=== PATIENT | female | born 1970 | race Caucasian/White ===

== ENCOUNTER 2021-06-18 15:15 | Emergency (ER) | payer OTHER, SELFPAY ==
--- NOTE | ~2021-06-18 | CT_ITS ---
EXAMINATION: CT ANGIOGRAM CHEST CLINICAL INFORMATION: Chest pain with question of dissection COMPARISON: Chest radiograph earlier today TECHNIQUE: Multiple axial images were obtained through the chest after the administration of 70 mL of Omnipaque 350 intravenous contrast. Extensive vascular post-processing including two-dimensional and three-dimensional reformatted images were created and reviewed on an independent workstation. This CT examination was performed using dose optimization techniques as appropriate, variously including the following: *Automated exposure control *Adjustment of mA and/or kV according to patient size (this includes techniques or standardized protocols for targeted exams where dose is matched to indication/reason for exam; i.e. extremities or head) *Use of iterative reconstruction technique DLP: 266 mGy-cm FINDINGS: LUNGS: The lungs are clear with no evidence of inflammation or nodules. MEDIASTINUM: The mediastinum is normal. VASCULAR: The thoracic aorta and visualized abdominal aorta appear normal without evidence of dissection. Cardiac motion degrades the very proximal thoracic aorta. Three-vessel branching pattern of the aortic arch is seen with widely patent vessels. Although not carried out for evaluation of the pulmonary arteries or pulmonary veins, they are well seen and unremarkable. No evidence of pulmonary emboli is noted. The celiac and SMA are patent. There are single renal arteries present which are patent PLEURA: There is no pleural effusion. No pleural mass or thickening. AXILLA: No lymphadenopathy. UPPER ABDOMEN: Unremarkable. OSSEOUS STRUCTURES: Unremarkable. CT/CT angio chest aorta IMPRESSION: Unremarkable examination. No evidence of aortic dissection.
--- NOTE | ~2021-06-18 | XR_ITS ---
EXAMINATION: XR CHEST CLINICAL INFORMATION: Chest pain COMPARISON: 11/30/2014 TECHNIQUE: Frontal view of the chest was obtained. FINDINGS: Lungs are well-inflated and clear. Trachea is midline in position. No interstitial disease, consolidation or mass. No pulmonary edema, pleural effusion or pneumothorax. Cardiac silhouette and pulmonary vessels are normal in size. The mediastinum and adamaris have normal contour. The visualized bones, and upper abdomen, are unremarkable. XR/XR chest 1V IMPRESSION: No acute cardiopulmonary abnormality.
[2021-06-18 15:24] VITALS: BP 130/65; PULSE 76; RESP 18; TEMP 37.1; O2SAT 100; BMI 21.5
--- NOTE | 2021-06-18 15:27 | ECG_ITS ---
Test Reason : CHEST PAIN Blood Pressure : / mmHG Vent. Rate : 077 BPM Atrial Rate : 077 BPM P-R Int : 166 ms QRS Dur : 086 ms QT Int : 392 ms P-R-T Axes : 073 039 061 degrees QTc Int : 443 ms Normal sinus rhythm RSR' or QR pattern in V1 suggests right ventricular conduction delay Otherwise normal ECG When compared with ECG of 25-APR-2014 09:35, No significant change was found Referred By: Generic ED Physician Electronically Signed By:SHE CRYSTAL MD
--- NOTE | 2021-06-18 16:06 | ED.CHESTPAIN ---
HPI - Chest Pain General Chief Complaint: Chest Pain Stated Complaint: chest pain Time Seen by Provider: 06/18/21 16:06 Source: patient Mode of arrival: ambulatory Limitations: no limitations History of Present Illness MD complaint: chest pain Onset (ago): hour(s) (245pm ) Timing of current episode: constant Prior episodes: No Onset: during rest Pain location: left chest Pain radiation: right arm Severity: moderate Quality: sharp Relieving factors: nothing Exacerbating factors: inspiration Associated symptoms: dyspnea Treatment prior to arrival: none Related Data Allergies Allergy/AdvReac Type Severity Reaction Status Date / Time tetanus and diphtheria Allergy Severe ANAPHYLAXIS Verified 06/18/21 15:23 toxoids [TETANUS & DIPHTHERIA TOXOIDS] erythromycin base Allergy Unknown UNKNOWN Verified 06/18/21 15:23 [ERYTHROMYCIN BASE] Review of Systems Review of Systems: Constitutional : No Weight loss, No Fever, No Chills ENT/Mouth : No sore throat, No Rhinorrhea Eyes: No Eye Pain, No Swelling Cardiovascular : pos Chest Pain, pos SOB, no Dyspnea on Exertion, No Orthopnea, No Edema, No Palpitations Respiratory : No Cough, No Sputum Gastrointestinal : no Nausea, No Vomiting, No Diarrhea, No abdominal Pain, No Hematochezia, No Melena Genitourinary : No Dysuria, No Urinary Frequency Musculoskeletal : No joint pain, No Myalgias, No Joint Swelling Skin : No Skin Lesions, No rash Neuro : No Weakness, pos Numbness, No Dizziness, No Headache Psych : No Anxiety/Panic, No Depression Heme/Lymph: No Bruising, No Lymphadenopathy Endocrine : No Polyuria, No Polydipsia All other systems reviewed and are negative PMFSH Past Medical History Attestation statement: The following information was validated with the patient. Medical History HTN (hypertension) Social History Social History (Updated 06/18/21 @ 16:32 by Verito Jefferson DO) Patient Tobacco Use Status: Never used Tobacco Use of substances other than those prescribed or required for medical reasons: No Advance Directives: No Advance Directives Information Provided: No Patient : No Physical Exam Vital Signs: Vital Signs: Last Vital Signs Temp 98 F 06/18/21 16:20 Pulse 73 06/18/21 16:20 Resp 18 06/18/21 16:20 BP 115/64 06/18/21 16:20 Pulse Ox 95 06/18/21 16:20 Body Mass Index 21.5 Appearance: Alert. Oriented X3. No acute distress. Anxious Eyes: Pupils equal, round and reactive to light. ENT: Pharynx normal. Neck: Normal inspection. Neck supple. CVS: Normal heart rate and rhythm. Pulses normal. Respiratory: No respiratory distress. Breath sounds normal. Abdomen: Soft and nontender. Skin: Skin warm and dry. Normal skin color. Normal skin turgor. Extremities: No lower extremity edema. No calf ttp Neuro: Oriented X 3. No motor deficit. No sensory deficit. Course Course Course Narrative: repeat trop pending signed out to Dr. Soto MDM - Chest Pain MDM Narrative Medical decision making narrative: 51 yo female with chest pain starting at 245pm with associated dyspnea and parasthesias in the R arm - has + family hx of brother age 50s had SD at this time will obtain EKG, troponin x 2, CTA for dissection given her R arm neuro complaints with it - she is distal NV intact. Lab Data Result diagrams: 06/18/21 16:19 06/18/21 16:19 Labs: Lab Results 06/18/21 06/18/21 06/18/21 Range/Units 16:19 16:19 16:19 WBC 7.4 (4.8-10.8) X10*3/uL RBC 3.98 L (4.20-5.50) X10*6/uL Hgb 12.6 (12.0-16.0) g/dl Hct 36.3 L (37-47) % MCV 91.2 (80-98) fL MCH 31.7 (27.0-33.0) pg MCHC 34.7 (31.0-35.0) g/dl RDW 11.9 (11.0-16.0) % Plt Count 315 (160-400) X10*3/uL MPV 9.3 L (9.4-12.3) fL Immature Gran % (Auto) 0.3 (0.0-0.4) % Neut % (Auto) 51.5 (45-73) % Lymph % (Auto) 37.6 (20-40) % [place] % (Auto) 8.9 (2-11) % Eos % (Auto) 1.2 (0-4) % Baso % (Auto) 0.5 (0-2) % Lymph # (Auto) 2.8 (1.2-4.9) X10*3/uL [place] # (Auto) 0.7 (0.1-1.2) X10*3/uL Eos # (Auto) 0.1 (0.0-0.4) X10*3/uL Baso # (Auto) 0.0 (0.0-0.2) X10*3/uL Abs Immat Gran (auto) 0.02 (0.00-0.03) X10*3/uL Absolute Neuts (auto) 3.8 (2.0-8.3) X10*3/uL Absolute Nucleated RBC 0.000 (0.0-0.012) X10*3/uL Nucleated RBC % (auto) 0.0 (0.0-0.2) /100WBC Sodium 138 (135-145) mmol/L Potassium 3.9 (3.3-5.1) mmol/L Chloride 105 (96-108) mmol/L Carbon Dioxide 22 (22-29) mmol/L Anion Gap 15 (12-20) BUN 17 H (9-16) mg/dL Creatinine 0.75 (0.5-1.4) mg/dL Estim Creat Clear Calc 70.1 Estimated GFR > 60 Random Glucose 95 (60-115) mg/dL Calcium 9.8 (8.4-10.2) mg/dL Troponin I High Sens < 3.5 (<3.5-17.0) ng/L ECG Data ECG #1: Attestation: I personally reviewed and interpreted this ECG as follows: ECG interpretation date: 06/18/21 ECG interpretation time: 16:07 Interpretation: Rate: 77 Rhythm: NSR [place]: normal Normal P waves. Normal REBA. Normal QRS complex. ST T wave : normal no VOLODYMYR qTC: normal prior studies: no acute ischemia The study has been interpreted contemporaneously by me. . Discharge Plan Discharge Clinical Impression: Chest pain
[2021-06-18 16:20] VITALS: BP 115/64; PULSE 73; RESP 18; TEMP 36.6; O2SAT 95
[2021-06-18] MEDS: 0.9 % Sodium Chloride 1,000 ML 999 ML IVCONT (16:27)
[2021-06-18 16:28] LABS: MANUAL DIFF FLAG NO
[2021-06-18 16:30] LABS: Basophils Percent Auto 0.5 % (0-2); Eosinophils Absolute Auto 0.1 X10*3/uL (0.0-0.4); Eosinophils Percent Auto 1.2 % (0-4); Hematocrit 36.3 % (37-47); Hemoglobin 12.6 g/dl (12.0-16.0); Imm Gran Abs Auto 0.02 X10*3/uL (0.00-0.03); Imm Gran Pct Auto 0.3 % (0.0-0.4); Lymphocytes Absolute Auto 2.8 X10*3/uL (1.2-4.9); Lymphocytes Percent Auto 37.6 % (20-40); Mean Corpuscular HGB Conc 34.7 g/dl (31.0-35.0); Mean Corpuscular Hemoglobin 31.7 pg (27.0-33.0); Mean Corpuscular Volume 91.2 fL (80-98); Mean Platelet Volume 9.3 fL (9.4-12.3); Monocytes Absolute Auto 0.7 X10*3/uL (0.1-1.2); Monocytes Percent Auto 8.9 % (2-11); Neutrophils Absolute Auto 3.8 X10*3/uL (2.0-8.3); Neutrophils Percent Auto 51.5 % (45-73); Platelet Count 315 X10*3/uL (160-400); Red Blood Count 3.98 X10*6/uL (4.20-5.50); Red Cell Distribution Width 11.9 % (11.0-16.0); White Blood Count 7.4 X10*3/uL (4.8-10.8)
[2021-06-18 16:45] LABS: Anion Gap 15 (12-20); Blood Urea Nitrogen 17 mg/dL (9-16); Calcium 9.8 mg/dL (8.4-10.2); Carbon Dioxide 22 mmol/L (22-29); Chloride 105 mmol/L (96-108); Creatinine Clr Calc Pharmacy 70.1; Estimated Glomerular Filt Rate > 60; Glucose Random 95 mg/dL (60-115); Potassium 3.9 mmol/L (3.3-5.1); Sodium 138 mmol/L (135-145)
[2021-06-18 16:52] LABS: Troponin-I High Sensitivity < 3.5 ng/L (<3.5-17.0)
[2021-06-18] MEDS: iohexoL 350 MG/ML 100 ML INFUS..BTL IV (18:18)
[2021-06-18 19:34] LABS: Troponin-I High Sensitivity < 3.5 ng/L (<3.5-17.0)
[2021-06-18 19:59] VITALS: BP 127/61; PULSE 65; RESP 14; TEMP 37; O2SAT 99
== END 2021-06-18 20:16 | disposition home or self-care (01) ==
PROVIDERS: Emergency Provider Emergency Medicine; PCP Internal Medicine
DX: R07.9 Chest pain, unspecified (principal); I10 Essential (primary) hypertension
CPT/HCPCS: 36415; 71045; 71275; 80048; 84484; 85025; 93005; 96360; 99283; 99284; Q9967

== ENCOUNTER 2021-07-04 06:22 | Outpatient (REF) | payer OTHER, SELFPAY ==
[2021-07-04 08:22] LABS: MANUAL DIFF FLAG NO
[2021-07-04 08:27] LABS: Basophils Percent Auto 0.6 % (0-2); Eosinophils Absolute Auto 0.1 X10*3/uL (0.0-0.4); Eosinophils Percent Auto 1.2 % (0-4); Hematocrit 35.8 % (37.0-47.0); Hemoglobin 12.2 g/dl (12.0-16.0); Imm Gran Abs Auto 0.01 X10*3/uL (0.00-0.03); Imm Gran Pct Auto 0.2 % (0.0-0.4); Lymphocytes Absolute Auto 1.8 X10*3/uL (1.2-4.9); Lymphocytes Percent Auto 37.4 % (20-40); Mean Corpuscular HGB Conc 34.1 g/dl (31.0-35.0); Mean Platelet Volume 9.3 fL (9.4-12.3); Monocytes Absolute Auto 0.3 X10*3/uL (0.1-1.2); Neutrophils Absolute Auto 2.7 x10*3/uL (2.0-8.3); Neutrophils Percent Auto 54.6 % (45-73); Platelet Count 318 X10*3/uL (160-400); Red Blood Count 3.81 X10*6/uL (4.20-5.50); Red Cell Distribution Width 12.4 % (11.0-16.0); White Blood Count 4.9 X10*3/uL (4.8-10.8)
[2021-07-04 09:10] LABS: Vitamin D 25-OH Total 33.2 ng/mL (>30)
[2021-07-04 09:25] LABS: Folate 17.4 ng/mL (> or = 4.0); Vitamin B12 576 pg/mL (200-900)
[2021-07-04 09:30] LABS: Anion Gap 10 (12-20); Blood Urea Nitrogen 17 mg/dL (9-16); Calcium 9.6 mg/dL (8.4-10.2); Carbon Dioxide 30 mmol/L (22-29); Chloride 105 mmol/L (96-108); Estimated Glomerular Filt Rate > 60; Glucose Random 86 mg/dL (60-115); Sodium 141 mmol/L (135-145)
[2021-07-04 09:38] LABS: Cortisol Random 6.7 ug/dL
[2021-07-04 18:48] LABS: Cortisol Random 7.9 ug/dL
[2021-07-07 17:52] LABS: Adrenocorticotropic Hormone 11 pg/mL (6-50)
[2021-07-08 14:55] LABS: Iodine, Serum/Plasma 45 mcg/L (52-109)
[2021-07-08 18:11] LABS: Follicle Stimulating Hormone 116.1 mIU/mL
[2021-07-08 22:16] LABS: DHEA Sulfate 92 mcg/dL (8-188)
[2021-07-08 22:35] LABS: Methylmalonic Acid 142 nmol/L (87-318)
[2021-07-09 11:27] LABS: Nicotinamide 23 ng/mL; Vit B3 - Nicotinic Acid <20 ng/mL
[2021-07-09 16:37] LABS: Vitamin B6 11.6 ng/mL (2.1-21.7)
[2021-07-09 16:45] LABS: Testosterone, Free 1.7 pg/mL (0.1-6.4); Testosterone, Total 19 ng/dL (2-45)
[2021-07-09 17:15] LABS: Vitamin B5 (Pantothenic Acid) <40 ng/mL (<275)
[2021-07-09 22:42] LABS: Progesterone <0.1 ng/mL
[2021-07-10 02:17] LABS: Pregnenolone, LC/MS 46 ng/dL (22-237)
[2021-07-10 11:21] LABS: Vitamin B1 12 nmol/L (8-30)
[2021-07-12 02:42] LABS: Estradiol Free 0.07 pg/mL; Estradiol, Ultrasensitive 3 pg/mL
[2021-07-14 15:31] LABS: IGF-1 (Somatomedin C) 99 ng/mL (50-317); IGF-1 Z Score (Female) -0.7 SD (-2.0 - +2.0)
== END 2021-07-04 06:23 | disposition home or self-care (01) ==
LOC: HO.LAB 06:22
PROVIDERS: PCP Internal Medicine; Visit Provider Nurse Practitioner Family
DX: R53.83 Other fatigue (principal); N95.8 Other specified menopausal and perimenopausal disorders
CPT/HCPCS: 36415; 80048; 82024; 82306; 82533; 82607; 82627; 82670; 82681; 82746; 83001; 83735; 83789; 83921; 84143; 84144; 84207; 84305; 84402; 84403; 84425; 84591; 85025

== ENCOUNTER 2021-07-04 08:32 | Emergency (ER) | payer OTHER, SELFPAY ==
--- NOTE | 2021-07-04 07:20 | ECG_ITS ---
Test Reason : SYNCOPE Blood Pressure : / mmHG Vent. Rate : 076 BPM Atrial Rate : 076 BPM P-R Int : 184 ms QRS Dur : 082 ms QT Int : 408 ms P-R-T Axes : 082 065 071 degrees QTc Int : 459 ms Normal sinus rhythm RSR' or QR pattern in V1 suggests right ventricular conduction delay Otherwise normal ECG When compared with ECG of 18-JUN-2021 15:21, No significant change was found Referred By: Verito Jefferson Electronically Signed By:SHE CRYSTAL MD
[2021-07-04 08:39] VITALS: BP 97/59; PULSE 80; RESP 20; TEMP 36.4; O2SAT 100; BMI 22.3
--- NOTE | 2021-07-04 08:43 | ED.SYNCOPE ---
HPI - Syncope General Chief Complaint: Syncope <Verito Jefferson DO - Last Filed: 07/04/21 11:32> Stated Complaint: ? <Verito Jefferson DO - Last Filed: 07/04/21 11:32> Time Seen by Provider: 07/04/21 08:43 <Verito Jefferson DO - Last Filed: 07/04/21 11:32> Source: patient <Verito Jefferson DO - Last Filed: 07/04/21 11:32> Mode of arrival: other (stretcher from lab) <Verito Jefferson DO - Last Filed: 07/04/21 11:32> Limitations: no limitations <Verito Jefferson DO - Last Filed: 07/04/21 11:32> History of Present Illness MD complaint: loss of consciousness and felt faint <Verito Jefferson DO - Last Filed: 07/04/21 11:32> Onset (ago): minute(s) <Verito Jefferson DO - Last Filed: 07/04/21 11:32> -: second(s) <Verito Jefferson DO - Last Filed: 07/04/21 11:32> Prodromal symptoms: lightheaded, diaphoresis and nausea/vomiting <Verito Jefferson DO - Last Filed: 07/04/21 11:32> Witnessed: Yes - by Bystander <Verito Jefferson DO - Last Filed: 07/04/21 11:32> Context: other (was having blood drawn for menopause on 4th vial started to have symptoms - fasting blood work) <Verito Jefferson DO - Last Filed: 07/04/21 11:32> Injuries sustained associated with event: none <Verito Jefferson DO - Last Filed: 07/04/21 11:32> Current symptoms: other (carpopedal spasm though better, initial BP lows) <Verito Jefferson DO - Last Filed: 07/04/21 11:32> History: previous syncopal episode (during one prior medical workup) <Verito Jefferson DO - Last Filed: 07/04/21 11:32> Treatments prior to arrival: none <Verito Jefferson DO - Last Filed: 07/04/21 11:32> Related Data Home Medications: Home Medications Medication Instructions Recorded Confirmed sertraline 100 mg tablet 1 tab PO DAILY 07/04/21 trazodone 50 mg tablet tab PO 07/04/21 <Verito Jefferson DO - Last Filed: 07/04/21 11:32> Allergies/Adverse Reactions: Allergies Allergy/AdvReac Type Severity Reaction Status Date / Time tetanus and diphtheria Allergy Severe ANAPHYLAXIS Verified 06/18/21 15:23 toxoids [TETANUS & DIPHTHERIA TOXOIDS] erythromycin base Allergy Unknown UNKNOWN Verified 06/18/21 15:23 [ERYTHROMYCIN BASE] <Verito Jefferson DO - Last Filed: 07/04/21 11:32> Review of Systems Review of Systems: Constitutional : No Weight loss, No Fever, No Chills, No Fatigue, No Malaise ENT/Mouth : No sore throat, No Rhinorrhea Eyes: No Eye Pain, No Swelling, No Redness Cardiovascular : No Chest Pain, No SOB, No Dyspnea on Exertion, No Orthopnea, No Edema, No Palpitations Respiratory : No Cough, No Sputum, No Wheezing Gastrointestinal : pos Nausea, No Vomiting, No Diarrhea, No Constipation, No abdominal Pain, No Hematochezia, No Melena Genitourinary : No Dysuria, No Urinary Frequency, No Hematuria, Musculoskeletal : No joint pain, No Myalgias, No Joint Swelling Skin : No Skin Lesions, No rash Neuro : pos diffuse Weakness, No Numbness, No Dizziness, No Headache, pos fainting Psych : No Anxiety/Panic, No Depression Heme/Lymph: No Bruising, No Bleeding,No Lymphadenopathy Endocrine : No Polyuria, No Polydipsia All other systems reviewed and are negative <Verito Jefferson DO - Last Filed: 07/04/21 11:32> [facility] Past Medical History Attestation statement: The following information was validated with the patient. <Verito Jefferson DO - Last Filed: 07/04/21 11:32> Medical History: Medical History Hypotension <Verito Jefferson DO - Last Filed: 07/04/21 11:32> Social History Social History: Social History Alcohol intake: never Patient Tobacco Use Status: Never used Tobacco Use of substances other than those prescribed or required for medical reasons: No Advance Directives: Yes Advance Directives Information Provided: Yes Advance Directives on File: No <Verito Jefferson DO - Last Filed: 07/04/21 11:32> Physical Exam Vital Signs: Vital Signs: Last Vital Signs Temp 97.6 F 07/04/21 08:39 Pulse 80 07/04/21 08:39 Resp 20 07/04/21 08:39 BP 97/59 L 07/04/21 08:39 Pulse Ox 98 07/04/21 09:38 Body Mass Index 22.3 <Verito Jefferson DO - Last Filed: 07/04/21 11:32> Vital Signs: Last Vital Signs Temp 97.6 F 07/04/21 08:39 Pulse 80 07/04/21 08:39 Resp 20 07/04/21 08:39 BP 97/59 L 07/04/21 08:39 Pulse Ox 98 07/04/21 09:38 Body Mass Index 22.3 <Daisy Child PA - Last Filed: 07/04/21 09:53> Appearance: Alert. Oriented X3. No acute distress. Eyes: Pupils equal, round and reactive to light. ENT: Pharynx normal. Neck: Normal inspection. Neck supple. CVS: Normal heart rate and rhythm. Pulses normal. Respiratory: No respiratory distress. Breath sounds normal. Abdomen: Soft and nontender. Skin: Skin warm and dry. Normal skin color. Normal skin turgor. Extremities: No lower extremity edema. No calf ttp Neuro: Oriented X 3. No motor deficit. No sensory deficit. carpopedal spasms resolved <Verito Jefferson DO - Last Filed: 07/04/21 11:32> MDM - Syncope MDM Narrative Medical decision making narrative: 51 yo female with hx of low blood pressure being worked up for menopause - had fasting blood work today hx of syncope with medical procedures in the past. At this time will add on lytes given her spasms though I suspect vasovagal syncope. Basic labs and 2L of IVF as well as EKG. Will order breakfast and reasess. No injuries sustained. <Verito Jefferson DO - Last Filed: 07/04/21 11:32> Lab Data Labs: Lab Results 07/04/21 Range/Units 08:34 POC Glucose 121 H (60-115) mg/dL <Verito Jefferson DO - Last Filed: 07/04/21 11:32> Lab Results 07/04/21 Range/Units 08:34 POC Glucose 121 H (60-115) mg/dL <LUIS Martines - Last Filed: 07/04/21 09:53> ECG Data Attestation: I personally reviewed and interpreted this ECG as follows: <Verito Jefferson DO - Last Filed: 07/04/21 11:32> ECG interpretation date: 07/04/21 <Verito Jefferson DO - Last Filed: 07/04/21 11:32> ECG interpretation time: 08:43 <Verito Jefferson DO - Last Filed: 07/04/21 11:32> Interpretation: Rate: 76 Rhythm: NSR [place]: normal Normal P waves. Normal REBA. Normal QRS complex. ST T wave : normal , no VOLODYMYR qTC: normal prior studies: no acute ischemia The study has been interpreted contemporaneously by me. . <Verito Jefferson DO - Last Filed: 07/04/21 11:32> Discharge Plan Discharge Clinical Impression: Vasovagal syncope <Verito Jefferson DO - Last Filed: 07/04/21 11:32> Patient Disposition: Home, Self-Care <Verito Jefferson DO - Last Filed: 07/04/21 11:32> Instructions: Syncope (ED) <Verito Jefferson DO - Last Filed: 07/04/21 11:32> Additional Instructions: return to ED for any worsening symptoms or concerns <Verito Jefferson DO - Last Filed: 07/04/21 11:32> Prescriptions: No Action trazodone 50 mg tablet PO RF: 0 sertraline 100 mg tablet 1 tab PO DAILY RF: 0 <Verito Jefferson DO - Last Filed: 07/04/21 11:32> Stand Alone Forms: Work/School Release <Verito Jefferson DO - Last Filed: 07/04/21 11:32> Interventions: ED Discharge Assessment Last Done: 07/04/21 10:25 <Verito Jefferson DO - Last Filed: 07/04/21 11:32> Discharge Date/Time: 07/04/21 10:25 <Verito Jefferson DO - Last Filed: 07/04/21 11:32>
[2021-07-04 08:45] LABS: Glucose, Whole Blood 121 mg/dL (60-115)
--- NOTE | 2021-07-04 08:48 | PC.NURSE ---
RN aware of poc 121
[2021-07-04] MEDS: 0.9 % Sodium Chloride 1,000 ML 999 ML IVCONT ×2 (09:01→09:57)
[2021-07-04 09:38] VITALS: O2SAT 98
== END 2021-07-04 10:25 | disposition home or self-care (01) ==
PROVIDERS: Emergency Provider Emergency Medicine; PCP Internal Medicine
DX: R55 Syncope and collapse (principal)
CPT/HCPCS: 36415; 82947; 93005; 96360; 99284; 99285

== ENCOUNTER 2022-06-26 10:35 | Emergency (ER) | payer OTHER, SELFPAY ==
[2022-06-26 10:56] VITALS: BP 121/68; PULSE 70; RESP 18; TEMP 36.6; O2SAT 99; BMI 21.2
--- NOTE | 2022-06-26 11:21 | ED.EXTPRO ---
HPI - Extremity Problem General Chief complaint: Extremity Injury, Upper Stated complaint: pain in L elbow Time Seen by Provider: 06/26/22 11:13 Source: patient Mode of arrival: ambulatory Limitations: no limitations History of Present Illness HPI Narrative: 52-year-old female [id number] here with left elbow pain intermittent over the last month with history of tendinitis in the same elbow. Patient here seeking cortisone injection as this has been helpful for her in the past. She has been draining recheck her primary care doctor to try to get an appointment but has been unable to. She denies any new injury or trauma. No associated numbness, tingling weakness of the extremity. Related Data Home Medications Medication Instructions Recorded Confirmed sertraline 100 mg tablet 1 tab PO DAILY 07/04/21 trazodone 50 mg tablet tab PO 07/04/21 Allergies Allergy/AdvReac Type Severity Reaction Status Date / Time tetanus and diphtheria Allergy Severe ANAPHYLAXIS Verified 06/18/21 15:23 toxoids [TETANUS & DIPHTHERIA TOXOIDS] erythromycin base Allergy Unknown UNKNOWN Verified 06/18/21 15:23 [ERYTHROMYCIN BASE] Review of Systems Review of Systems: Yes all other systems are reviewed and are negative Constitutional: Constitutional: Reports no additional constitutional complaints, Denies fever(s) and Denies weakness ENT: Denies system reviewed and no additional complaints, except as documented Cardiovascular: Cardiovascular: Reports no additional cardiovascular complaints, Denies chest pain and Denies dyspnea Respiratory: Respiratory: Reports no additional respiratory complaints and Denies dyspnea Gastrointestinal: Gastrointestinal: Reports no additional gastrointestinal complaints, Denies nausea and Denies vomiting Genitourinary: Genitourinary: Denies no additional female genitourinary complaints Musculoskeletal: Musculoskeletal: Reports no additional musculoskeletal complaints, Reports arthralgias, Denies joint swelling, Denies numbness and Denies tingling Integumentary/Breasts: Skin/Breast: Reports system reviewed and no additional complaints, except as docu and Denies rash Neurologic: Reports system reviewed and no additional complaints, except as documented, Denies Abnormal speech present, Denies numbness, Denies tingling and Denies weakness PMF Past Medical History Attestation statement: The following information was validated with the patient. Source: old records reviewed and nursing notes reviewed Medical History Hypotension Social History Social History Alcohol intake: never Patient Tobacco Use Status: Never used Tobacco Advance Directives: No Advance Directives Information Provided: No Physical Exam Vital Signs: Vital Signs: Last Vital Signs Temp 98 F 06/26/22 10:56 Pulse 70 06/26/22 10:56 Resp 18 06/26/22 10:56 BP 121/68 06/26/22 10:56 Pulse Ox 99 06/26/22 10:56 O2 Del Method 06/26/22 10:56 BMI result Body Mass Index 21.2 Const: General: cooperative, healthy appearing, comfortable and no acute distress Orientation/consciousness: patient oriented x3 Limitations: no limitations HEENT: Head: Yes normal to inspection Ears: hearing grossly normal bilaterally Eyes: General: appearance normal, both eyes and all related structures Pupils: Equal, round and reactive pupils present Neck: Neck: Yes normal visual inspection Chest: Chest palpation & inspection: normal inspection of the chest Resp: Effort & Inspection: normal respiratory effort Cardio: Peripheral pulses: Peripheral pulses 2+ throughout Skin: General skin exam: no rashes or lesions noted Neuro: General: patient oriented x3 and moves all extremities Cranial nerves: Yes Equal, round and reactive pupils present Cognition (Neuro): normal cognition Speech: No Abnormal speech present Gait exam (Neuro): Normal gait present Extrem: Other: There is tenderness the left lateral elbow which is worsened with extension and flexion of the elbow. There is no weakness. Neurovascularly intact distally. Normal pulses. No redness or warmth General: Yes normal to inspection MDM - Extremity (Nontraumatic) MDM Narrative Medical decision making narrative: 52-year-old female here with left elbow pain or intermittent over the last month with a history of tendinitis in the same elbow. Patient here seeking cortisone injection. Unfortunately explain to her that we are unable to do this in the emergency room. She is taking ibuprofen feels that is not helping. We discussed a brief course of prednisone which she is not interested in doing this. We also discussed some bracing but she does not like this is helpful. Recommend continuing Motrin, heat or ice. She can follow up with primary care and orthopedics as needed. Reviewed worrisome signs and symptoms of when to return to the emergency room. Comfortable plan for discharge home. Medical Records Attestation: I reviewed the patient's medical records. Discharge Plan Discharge Clinical Impression: Left elbow tendinitis Patient Disposition: Home, Self-Care Instructions: Tendinitis (ED) Additional Instructions: Continue ibuprofen Heat or ice You can try to get in with your primary care doctor or recheck to Orthopedics for the cortisone injection Prescriptions: No Action trazodone 50 mg tablet PO sertraline 100 mg tablet 1 tab PO DAILY Referrals: [facility] [place] Orthopedic Surgeons [Provider Group] - 3 days Interventions: ED Discharge Assessment Last Done: 06/26/22 11:32 Discharge Date/Time: 06/26/22 11:33
== END 2022-06-26 11:33 | disposition home or self-care (01) ==
PROVIDERS: Emergency Provider Emergency Medicine; PCP Internal Medicine
DX: M25.522 Pain in left elbow (principal)
CPT/HCPCS: 99282; 99283

== ENCOUNTER 2022-09-01 07:46 | Emergency (ER) | payer OTHER, SELFPAY ==
--- NOTE | ~2022-09-01 | CT_ITS ---
EXAMINATION: CT HEAD WITHOUT CONTRAST CLINICAL INFORMATION: Dizziness and left upper extreme numbness COMPARISON: None TECHNIQUE: Contiguous axial imaging was performed from the skull base to vertex without intravenous administration of contrast. This CT examination was performed using dose optimization techniques as appropriate, variously including the following: *Automated exposure control *Adjustment of mA and/or kV according to patient size (this includes techniques or standardized protocols for targeted exams where dose is matched to indication/reason for exam; i.e. extremities or head) *Use of iterative reconstruction technique DLP: 658 mGy-cm FINDINGS: There is no acute intra-axial, extra-axial bleed, masses or midline shift. There is no acute infarction in evolution. There is no edema. There is a subtle lucency seen in the right white matter frontal lobe axial image 20/3 and coronal image 102/7 likely artifact. The lateral ventricles are symmetrical in size and configuration without enlargement. The joshua to white matter differentiation is maintained normal. Bone windows reveal no calvarial abnormality. Bilateral paranasal sinuses and mastoid air cells are well-aerated. CT/CT head/brain wo IV con IMPRESSION: No acute intracranial process seen. .
[2022-09-01 07:57] VITALS: BP 98/62; PULSE 75; RESP 18; TEMP 36.6; O2SAT 99; BMI 22.6
--- NOTE | 2022-09-01 08:05 | ECG_ITS ---
Test Reason : dizziness Blood Pressure : / mmHG Vent. Rate : 062 BPM Atrial Rate : 062 BPM P-R Int : 176 ms QRS Dur : 080 ms QT Int : 386 ms P-R-T Axes : 076 047 064 degrees QTc Int : 391 ms Normal sinus rhythm Normal ECG When compared with ECG of 04-JUL-2021 08:38, QT has shortened Referred By: Porsche Almodovar Electronically Signed By:ADITI PIERRE
--- NOTE | 2022-09-01 08:27 | ED_ITS ---
HPI - Dizziness General Chief Complaint: Dizziness Stated Complaint: Dizzy/Near syncope this am Time Seen by Provider: 09/01/22 08:05 Source: patient and family Mode of arrival: ambulatory Limitations: no limitations History of Present Illness HPI Narrative: 52-year-old female with a past medical history of vasovagal syncope in June 2021 while having her blood drawn, nonspecific chest pain in 2020, in frequent ear infections per patient presents to the emergency department, with her spouse, for complaints of dizziness and feeling faint that began at 6:30 a.m. She states she felt nauseous and had the sensation she was about to pass out and sat on the floor to avoid falling. She describes feeling cloudy or fuzzy in her head when symptoms began. At that time, she drank orange juice as she a concerns that her blood sugar could be low, with moderate reduction in dizziness. She states her ear symptoms are worsened with movement and position change. She denies any recent illness or known sick contacts. She denies any headache, vision changes, changes in hearing, chest pain or palpitations, and denies nausea at this time. She denies any changes in her medication history or new medications/supplements. She denies any memory impairment or changes in gait. VSS on arrival with BP 98/62, which patient states is consistent with her typical blood pressure. MD elicited complaint: dizziness and lightheadedness Pertinent past history: inner ear problems and syncope (During phlebotomy 2020) Onset (ago): hour(s) (2) Timing: sudden onset Severity: moderate Description: lightheadedness, off-balance and near-syncope History of similar symptoms: No Exacerbating factors: movement/ambulation, change in body position and standing Relieving factors: remaining still, rest and lying down Related Data Home Medications Medication Instructions Recorded Confirmed sertraline 100 mg tablet 1 tab PO DAILY 07/04/21 trazodone 50 mg tablet tab PO 07/04/21 Allergies Allergy/AdvReac Type Severity Reaction Status Date / Time tetanus and diphtheria Allergy Severe ANAPHYLAXIS Verified 06/18/21 15:23 toxoids [TETANUS & DIPHTHERIA TOXOIDS] erythromycin base Allergy Unknown UNKNOWN Verified 06/18/21 15:23 [ERYTHROMYCIN BASE] Review of Systems Review of Systems: Constitutional: No Weight loss, No Fever, No Chills, No Night Sweats, No Fatigue, No Malaise ENT/Mouth: No Hearing loss, No Ear Pain, No Nasal Congestion, No Sinus Pain, No Hoarseness, No sore throat, No Rhinorrhea, No Swallowing Difficulty Eyes: No Eye Pain, No Swelling, No Redness, No Foreign Body, No Discharge, No Vision Changes Cardiovascular: No Chest Pain, No SOB, No Dyspnea on Exertion, No Orthopnea, No Edema, No Palpitations Respiratory: No Cough, No Sputum, No Wheezing, No Smoke Exposure, No Dyspnea Gastrointestinal: No Nausea, No Vomiting, No Diarrhea, No Constipation, No Abdominal pain, No Hematochezia, No Melena Genitourinary: No irregular bleeding, No Dysuria, No Urinary Frequency, No Hematuria, No Urinary Incontinence/retention, No Urgency, No Flank Pain, No Urinary Flow Changes, No Hesitancy Musculoskeletal: No joint pain, No Myalgias, No Joint Swelling Skin: No Skin Lesions, No rash Neuro: No Weakness, No Loss of Consciousness, No Headache Psych: No Anxiety/Panic, No Depression, No SI/HI/AH/VH, No Social Issues, Heme/Lymph: No Bruising, No Bleeding,No Lymphadenopathy Endocrine: No Polyuria, No Polydipsia, No Temperature Intolerance Yes all other systems are reviewed and are negative ENT: Reports Normal hearing present Neurologic: Reports Normal hearing present [facility] Past Medical History Attestation statement: The following information was validated with the patient. Source: old records reviewed Medical History Hypotension Social History Social History Alcohol intake: never Patient Tobacco Use Status: Never used Tobacco Advance Directives: No Advance Directives Information Provided: No Physical Exam Vital Signs: Vital Signs: Last Vital Signs Temp 97.8 F 09/01/22 07:57 Pulse 56 09/01/22 09:39 Resp 18 09/01/22 07:57 BP 114/66 09/01/22 09:39 Pulse Ox 99 09/01/22 07:57 O2 Del Method 09/01/22 07:57 BMI result Body Mass Index 22.6 Const: General: cooperative, alert and awake Nutritional Appearance: average body habitus Orientation/consciousness: patient oriented x3 Limitations: no limitations HEENT: Head: Yes normal to inspection and Yes normocephalic Ears: hearing grossly normal bilaterally and external ears normal General nose exam: Normal external nose present and Normal nares present Face and sinus: Yes normal facial exam and Yes sinuses nontender Mouth: Normal oral and palatal mucosa present Teeth and gingiva: dentition normal Throat: Yes posterior oropharynx normal Eyes: General: appearance normal, both eyes and all related structures Visual Keith: normal visual keith by confrontation Alignment and Position: alignment normal Periorbital: periorbital findings normal Eyelids: Yes eyelids normal Conjunctivae: conjunctivae normal Sclerae: sclerae normal Corneas: corneas normal Pupils: Equal, round and reactive pupils present EOM: EOMs intact bilaterally Neck: Neck: Yes normal visual inspection, Yes full ROM and Yes no ly mphadenopathy Chest: Chest palpation & inspection: normal inspection of the chest Resp: Effort & Inspection: normal respiratory effort and not labored Auscultation: clear to auscultation bilaterally, no crackles, no rhonchi and no wheezes Cardio: Rate: regular rate Rhythm: regular rhythm GI: Inspection: Yes normal to inspection Palpation (GI): Soft to palpation and nontender Auscultation: normal bowel sounds Back/Spine/Pelvis: Cervical Spine: cervical ROM normal Thoracic/Lumbar Spine: thoraco-lumbar ROM normal Skin: General skin exam: no rashes or lesions noted Neuro: General: patient oriented x3, tone normal and moves all extremities Cranial nerves: Yes Equal, round and reactive pupils present, Yes Midline tongue present, Yes Normal hearing present and Yes Ability to bilaterally elevate shoulders present Cognition (Neuro): normal cognition Gait exam (Neuro): Normal gait present Motor exam (neuro): 5/5 motor strength present throughout Extrem: General: Yes normal to inspection, Yes full ROM and Yes capillary r efill normal Psych: Appearance: grossly normal Mental Status: mental status grossly normal Speech and movement: Normal speech and movement present Affect: normal affect Attitude: cooperative Thought process: Normal thought process present Thought content: Normal thought content present Insight: Good insight present (Psych) Judgement: Good judgement present (Psych) Course Course Course Narrative: 0820: Plan for EKG, blood work, glucose POC due to patient's concerns for blood sugar issues, and CT head to rule out intracranial pathology as cause of left upper extremity paresthesias. 0835: POC 100 0940: othrostatic VSS with minimal changes in BP from lying, sitting, and standing. Plan to give 500 ml NS and reassess for changes in dizziness Medications Administered Discontinued Medications Generic Name Dose Route Start Last Admin Trade Name Ray PRN Reason Stop Dose Admin Sodium Chloride 500 mls @ 999 mls/hr 09/01/22 09:45 09/01/22 10:38 Ns IV 09/01/22 10:15 999 mls/hr .Q31M WILTON Administration Medical Decision Making Medical Decision Making [facility] Narrative: 52-year-old female with a past medical history of vasovagal syncope in June 2021 while having her blood drawn, nonspecific chest pain in 2020, in frequent ear infections per patient presents to the emergency department, with her spouse, for complaints of dizziness and feeling faint that began at 6:30 a.m. She states she felt nauseous and had the sensation she was about to pass out and sat on the floor to avoid falling. She describes feeling cloudy or fuzzy in her head when symptoms began. Physical exam unremarkable, LS CTA, neuros intact, no nystagmus, speech clear, of the extremities with equal strength. Glucose POC 100. EKG normal sinus rhythm at [address] head unremarkable for acute intracranial process. Blood work essentially unremarkable, showing HCT 36.3 with known history of iron deficiency anemia per patient. She states she is prescribed iron supplements, however; she does not take them as they have cause constipation in the past. Suspicious for near syncope based on dizziness with position changes Low suspicion of stroke, TIA, vertigo, cardiac disease, arrhythmias, pulmonary emboli based on diagnostics, HPI, PE, and diagnostics. Patient is safe for discharge at this time with plan to increase fluid and salt intake. Recommended to be cautious with standing to prevent falls. HPI, PE, diagnostics, and plan discussed with patient and family with no unanswered questions at this time. Patient educated to return to the emergency department with new, worsening, or concerning emergent symptoms. Recommended to follow-up with her primary care provider for further treatment and management. *Refer to Course for additional information on consultations, diagnostic interpretation, consultations, emergency department stay, conversations with patient and family, shared decision making with patient, and more information on medical decision making* Lab Data [facility] Lab Attestation statement: I reviewed the patient's lab results. Result Diagrams: 09/01/22 08:43 09/01/22 08:43 Labs: Lab Results 09/01/22 09/01/2223 Range/Units 08:35 08:43 08:43 WBC 6.8 (4.8-10.8) X10*3/uL RBC 3.95 L (4.20-5.50) X10*6/uL Hgb 12.2 (12.0-16.0) g/dl Hct 36.3 L (37.0-47.0) % MCV 91.9 (80.0-98.0) fL MCH 30.9 (27.0-33.0) pg MCHC 33.6 (31.0-35.0) g/dl RDW 12.1 (11.0-16.0) % Plt Count 291 (160-400) X10*3/uL MPV 9.5 (9.4-12.3) fL Immature Gran % (Auto) 0.1 (0.0-0.4) % Neut % (Auto) 67.9 (45-73) % Lymph % (Auto) 21.6 (20-40) % Humphreys % (Auto) 8.3 (2-11) % Eos % (Auto) 1.5 (0-4) % Baso % (Auto) 0.6 (0-2) % Lymph # (Auto) 1.5 (1.2-4.9) X10*3/uL Humphreys # (Auto) 0.6 (0.1-1.2) X10*3/uL Eos # (Auto) 0.1 (0.0-0.4) X10*3/uL Baso # (Auto) 0.0 (0.0-0.2) X10*3/uL Abs Immat Gran (auto) 0.01 (0.00-0.03) X10*3/uL Absolute Neuts (auto) 4.6 (2.0-8.3) x10*3/uL Absolute Nucleated RBC 0.000 (0.0-0.012) X10*3/uL Nucleated RBC % (auto) 0.0 (0.0-0.2) /100WBC Sodium 139 (135-145) mmol/L Potassium 4.1 (3.3-5.1) mmol/L Chloride 104 (96-108) mmol/L Carbon Dioxide 30 H (22-29) mmol/L Anion Gap 9 L (12-20) BUN 18 H (9-16) mg/dL Creatinine 0.72 (0.5-1.4) mg/dL Estim Creat Clear Calc 68.9 Estimated GFR > 60 POC Glucose 100 (60-115) mg/dL Random Glucose 94 (60-115) mg/dL Calcium 9.7 (8.4-10.2) mg/dL Total Bilirubin 0.6 (0.0-1.0) mg/dL AST 19 (5-31) U/L ALT 14 (0-31) U/L Alkaline Phosphatase 62 (39-117) U/L Total Protein 6.5 (6.5-8.0) g/dL Albumin 4.1 (3.5-5.0) g/dL Independent Interpretation I performed an independent interpretation of an: EKG Interpretation: I independently reviewed the EKG Normal sinus rhythm Normal ECG When compared with ECG of 04-JUL-2021 08:38, QT has shortened Vent. Rate : 062 BPM ? ? Atrial Rate : 062 BPM ?? P-R Int : 176 ms? QRS Dur : 080 ms ? ?QT Int : 386 ms ? ? ? P-R-T Axes : 076 047 064 degrees ?? QTc Int : 391 ms ? Radiology Impression Discussion of test interpretation with radiology: I have reviewed the radiologist's reading. Radiologist Impression: I independently reviewed the CT head showing no acute intracranial pathology. EXAMINATION: CT HEAD WITHOUT CONTRAST CLINICAL INFORMATION: Dizziness and left upper extreme numbness? COMPARISON: None TECHNIQUE: Contiguous axial imaging was performed from the skull base to vertex without intravenous administration of contrast. This CT examination was performed using dose optimization techniques as appropriate, variously including the following: *Automated exposure control *Adjustment of mA and/or kV according to patient size (this includes techniques or standardized protocols for targeted exams where dose is matched to indication/reason for exam; i.e. extremities or head) *Use of iterative reconstruction technique DLP: 658 mGy-cm FINDINGS: There is no acute intra-axial, extra-axial bleed, masses or midline shift. There is no acute infarction in evolution. There is no edema. There is a subtle lucency seen in the right white matter frontal lobe axial image 20/3 and coronal image 102/7 likely artifact. The lateral ventricles are symmetrical in size and configuration without enlargement. The joshua to white matter differentiation is maintained normal. Bone windows reveal no calvarial abnormality. Bilateral paranasal sinuses and mastoid air cells are well-aerated. CT/CT head/brain wo IV con IMPRESSION: No acute intracranial process seen. . ? Dictated By: Seth Cam MD Signed By: <Electronically signed by Seth Cam MD in OV> 09/01/22852 DD/ 9 TD/TT:? Lining Stamper: [facility] [place] Discharge Plan Discharge Clinical Impression: Near syncope Patient Disposition: Home, Self-Care Instructions: Near Syncope (ED), Dizziness (ED), Fall Prevention (ED) Additional Instructions: Your CT head was unremarkable for stroke or acute disease. Your EKG was normal at 62 beats per minute. Your lab worked showed that you continue to have anemia and your blood sugar was 100 (within normal limits). It is recommended that you begin taking iron supplements with a stool softener to prevent constipation. Your blood pressure did not change with your positioning (lying, sitting, standing) ruling out postural/orthostatic hypotension. You are safe for discharge at this time. Please increase your fluid and salt intake. Recommended to be cautious with position changes and standing to prevent falls. Please return to the emergency department with new, worsening, or concerning emergent symptoms. Recommended to follow-up with your primary care provider for further treatment and management. Prescriptions: No Action trazodone 50 mg tablet PO sertraline 100 mg tablet 1 tab PO DAILY Referrals: Humberto Carroll [Physician] - Shira Adler MD [Primary Care Provider] - Interventions: ED Discharge Assessment Last Done: 09/01/22 12:01 Discharge Date/Time: 09/01/22 12:03 Print Language: Setswana
[2022-09-01 08:39] LABS: Glucose, Whole Blood 100 mg/dL (60-115)
[2022-09-01 08:47] LABS: MANUAL DIFF FLAG NO
[2022-09-01 08:51] LABS: Basophils Percent Auto 0.6 % (0-2); Eosinophils Absolute Auto 0.1 X10*3/uL (0.0-0.4); Eosinophils Percent Auto 1.5 % (0-4); Hematocrit 36.3 % (37.0-47.0); Hemoglobin 12.2 g/dl (12.0-16.0); Imm Gran Abs Auto 0.01 X10*3/uL (0.00-0.03); Imm Gran Pct Auto 0.1 % (0.0-0.4); Lymphocytes Absolute Auto 1.5 X10*3/uL (1.2-4.9); Lymphocytes Percent Auto 21.6 % (20-40); Mean Corpuscular HGB Conc 33.6 g/dl (31.0-35.0); Mean Corpuscular Hemoglobin 30.9 pg (27.0-33.0); Mean Corpuscular Volume 91.9 fL (80.0-98.0); Mean Platelet Volume 9.5 fL (9.4-12.3); Monocytes Absolute Auto 0.6 X10*3/uL (0.1-1.2); Monocytes Percent Auto 8.3 % (2-11); Neutrophils Absolute Auto 4.6 x10*3/uL (2.0-8.3); Neutrophils Percent Auto 67.9 % (45-73); Platelet Count 291 X10*3/uL (160-400); Red Blood Count 3.95 X10*6/uL (4.20-5.50); Red Cell Distribution Width 12.1 % (11.0-16.0); White Blood Count 6.8 X10*3/uL (4.8-10.8)
[2022-09-01 09:12] LABS: Alanine Aminotransferase 14 U/L (0-31); Albumin Level 4.1 g/dL (3.5-5.0); Alkaline Phosphatase 62 U/L (39-117); Anion Gap 9 (12-20); Aspartate Amino Transferase 19 U/L (5-31); Bilirubin Total 0.6 mg/dL (0.0-1.0); Blood Urea Nitrogen 18 mg/dL (9-16); Calcium 9.7 mg/dL (8.4-10.2); Carbon Dioxide 30 mmol/L (22-29); Chloride 104 mmol/L (96-108); Creatinine Clr Calc Pharmacy 68.9; Estimated Glomerular Filt Rate > 60; Glucose Random 94 mg/dL (60-115); Potassium 4.1 mmol/L (3.3-5.1); Sodium 139 mmol/L (135-145); Total Protein 6.5 g/dL (6.5-8.0)
[2022-09-01 09:38] VITALS: BP 105/64; PULSE 59
[2022-09-01 09:39] VITALS: BP 109/64; BP 114/66; PULSE 56; PULSE 65
[2022-09-01] MEDS: 0.9 % Sodium Chloride 500 ML 999 ML IV (10:38)
== END 2022-09-01 12:03 | disposition home or self-care (01) ==
PROVIDERS: Nurse Practitioner Family; Emergency Provider Emergency Medicine; PCP Internal Medicine
DX: R55 Syncope and collapse (principal); Z79.899 Other long term (current) drug therapy
CPT/HCPCS: 36415; 70450; 80053; 82947; 85025; 93005; 99284